=== PATIENT | female | born 1960 | race Caucasian/White ===

== ENCOUNTER 2022-01-11 09:16 | Outpatient (CLI) | payer BC ==
[2022-01-11] MEDS ORDERED: Iopamidol 370 76% 100 ML VIAL ONE (11:30)
== END 2022-01-11 09:17 | disposition home or self-care (01) ==
LOC: CT 09:16
PROVIDERS: ATTEND Physician Assistant
DX: Q24.8 Other specified congenital malformations of heart (principal)
CPT/HCPCS: 71275; 82565; Q9967